=== PATIENT | male | born 1965 | race Caucasian/White ===

== ENCOUNTER 2020-01-03 01:43 | Emergency (ER) | payer OTHER ==
[~2020-01-03] VITALS: Ht 180.3 cm; Wt 77.1 kg
--- NOTE | ~2020-01-03 | EMS ---
[place] [address] EMS Patient Care Report Name: SUHAIL ROD Room #: DEP Danica#: [id number] Admission: 01/03/20 Attend Phys: Discharge: 01/03/20 Date of : 67 Report #: [id number] THIS REPORT FOR: //name// Report Transmitted: 01/03/2020 05:07 EMS Care Summary [place], [place]/[facility] Incident [id number] @ 01/03/2020 00:50 Incident Location [facility] [address] [place] [address] Patient SUHAIL ROD Male, 54 Years 1965 Patient Address [address] [place] [address] Patient History Hypertension (HTN),Alcohol Abuse, Patient Allergies Shellfish allergy, Patient Medications None Reported, Chief Complaint fall, lac to left eye Disposition Transported No Lights/[place] Reason Overdose/Poisoning/Ingestion Transported To [facility] Narrative Called to the scene for an OD. Upon arrival, [facility] on the scene. Pt fell hitting his head and has a laceration to the left eye, approx 2 cm. He admits to drinking, is cooperative. He denied neck and back pain. He was assisted to the EMS cot and loaded in the ambulance w/o incident[place] [address] EMS Patient Care Report Name: SUHAIL ROD Room #: DEP [facility].#: [id number] Admission: 01/03/20 Attend Phys: Discharge: 01/03/20 Date of : 67 Report #: [id number] Bandage placed over the left eye with pressure held by the pt. En route: no changes. RR to ER. Arrived: pt taken to ER #2, p are & report to ER staff. Initial Vitals @01:30P: 92,R: 16,BP: 165/107,Pain: 4/10,GCS: 15,CO: 2,SpO2: 98,Revised Trauma: 12, Assessments @01:20MENTAL:Person Oriented,Time Oriented,Place Oriented,Event Oriented,SKIN:HEENT:Eyes: LAC,LUNG SOUNDS:ABDOMEN:PELVIS//GI:EXTREMITIES:Left Arm: No Abnormalities,Right Arm: No Abnormalities,Left Leg: No Abnormalities,Right Leg: No Abnormalities,PULSE:NEURO:No Abnormalities, Impression Laceration/Abrasion/Hematoma (minor surface trauma) Procedures @01:20ALS AssessmentResponse: UnchangedSucceeded@01:38StretcherResponse: Unchanged@01:38Bleeding ControlResponse: UnchangedSucceeded@01:38BandagingResponse: UnchangedSucceeded Timeline 00:49,Call Received 00:49,Dispatch Notified 00:50,Dispatched 00:52,En Route 01:19,On Scene 01:20,At Patient 01:20,ALS Assessment,Response: UnchangedSucceeded, 01:30,BP: 165/107 M,PULSE: 92,RR: 16 R,SPO2: 98 Ox,ETCO2: ,BG: ,PAIN: 4,GCS: 15, 01:31,Depart Scene 01:38,Stretcher,Response: Unchanged 01:38,Bleeding Control,Response: UnchangedSucceeded, 01:38,Bandaging,Response: UnchangedSucceeded, 01:39,At Destination 01:55,Call Closed Disclaimer v1.1 Copyright 2020 [employer] This EMS Care Summary contains data elements from the applicable legal record (which may be displayed differently). It is designed to provide pertinent information for the following purposes: continuity of care, clinical quality, and state data reporting. The complete legal record is available to ED staff and administrators of the receiving hospital in [employer] Patient Tracker. All data is provided "as is."
[2020-01-03 02:42] VITALS: BP 114/81
== END 2020-01-03 02:43 | disposition home or self-care (01) ==
LOC: ER 01:43
DX: S01.112A Laceration without foreign body of left eyelid and periocular area, initial encounter (principal); F10.920 Alcohol use, unspecified with intoxication, uncomplicated; R55 Syncope and collapse; F17.210 Nicotine dependence, cigarettes, uncomplicated; Z91.013 Allergy to seafood; W45.8XXA Other foreign body or object entering through skin, initial encounter; Y93.89 Activity, other specified; Y92.89 Other specified places as the place of occurrence of the external cause; Y99.8 Other external cause status

== ENCOUNTER 2020-02-29 15:24 | Emergency (ER) | payer OTHER ==
[~2020-02-29] VITALS: Ht 180.3 cm; Wt 68.0 kg
[2020-02-29] MEDS ORDERED: PROAIR HFA8.5 GM INH (15:36)
[2020-02-29 16:21] LABS: ABSOLUTE NEUTROPHILS 2.3 thou/uL (1.4-8.2); BASOPHILS 0.4 % (0.0-2.0); EOSINOPHILS 0.3 % (0.0-3.0); HEMATOCRIT 40.9 % (42.0-52.0); HEMOGLOBIN 13.9 gm/dL (14.0-18.0); LYMPHOCYTES 32.1 % (24.0-44.0); MCH 31.8 pg (26.0-34.0); MCHC 34.1 g/dL (28.0-37.0); MCV 93.4 fL (80.0-100.0); MONOCYTES 7.3 % (1.0-8.0); PLATELET COUNT 177 thou/uL (150-400); POLYS 59.9 % (36.0-66.0); RBC 4.38 mil/uL (4.50-6.00); RDW 12.3 % (10.5-14.5); WBC 3.9 thou/uL (4.0-11.0)
[2020-02-29 16:41] LABS: ANION GAP 11 mmol/L (7-16); BUN 4 mg/dL (7-18); CALCIUM 7.9 mg/dL (8.5-10.1); CHLORIDE 93 mmol/L (98-107); CO2 27 mmol/L (21-32); GLUCOSE 98 mg/dL (74-106); POTASSIUM 3.4 mmol/L (3.5-5.1); SODIUM 131 mmol/L (136-145)
[2020-02-29 16:51] LABS: ALBUMIN 3.8 g/dL (3.4-5.0); SGOT 29 U/L (15-37); SGPT 13 U/L (30-65); TOTAL BILIRUBIN 0.7 mg/dL (0.2-1.0); TOTAL PROTEIN 7.3 g/dL (6.4-8.2); TROPONIN-I <0.06 ng/mL (<0.06)
[2020-02-29 18:44] VITALS: BP 130/90
--- NOTE | 2020-03-01 07:22 | EKG ---
[facility] [place] [address] ELECTROCARDIOGRAM REPORT Name: SUHAIL ROD Room #: DEP [facility]#: [id number] Admission: 02/29/20 Attend Phys: Discharge: 02/29/20 Date of : 67 Report #: [id number] THIS REPORT FOR: cc: BALWINDER - No family physician/PCP FAM - No family physician/PCP Clarence Vinson MD [facility] ~ THIS REPORT FOR: //name// [facility] ED Test Date: 2020-02-29 Test Time: 16:22:05 Pat Name: SUHAIL ROD Department: Room: Gender: Parts Counter Associate: LATRICE ALONSO : 1965 Requested By: Luz Marina Avila Order Number: [id number] MD: Clarence Vinson Measurements Intervals [place] Rate: 85 P: 60 OR: 143 QRS: -25 QRSD: 95 T: 64 QT: 376 QTc: 447 Interpretive Statements Sinus rhythm Borderline left axis deviation Right ventricular conduction delay No previous ECG available for comparison Electronically Signed On 03-01-2020 7:21:49 [employer]ULT[employer] SCI[employer] by Clarence Vinson [email or web address] <ELECTRONICALLY SIGNED> By: Clarence Vinson MD, FAC 03/01/20 0721 [id number] [id number] Clarence Vinson MD, [facility] /EPI
== END 2020-02-29 18:44 | disposition home or self-care (01) ==
LOC: ER 15:24
PROVIDERS: Physician Assistant
DX: J44.9 Chronic obstructive pulmonary disease, unspecified (principal); F17.210 Nicotine dependence, cigarettes, uncomplicated; Z72.89 Other problems related to lifestyle; Z79.899 Other long term (current) drug therapy; Z91.013 Allergy to seafood